=== PATIENT | female | born 1940 | race African-American/Black ===

== ENCOUNTER 2023-10-25 11:19 | Outpatient (AMB) | payer MEDICARE, MEDICAID, SELFPAY ==
--- NOTE | 2023-10-25 11:23 | HO.NEPHOV_ITS ---
HPI HPI Comments History of Present Illness Details I had the privilege of seeing Azalia in follow-up of her hypertension. She feels well. Her blood pressure has been well controlled. She does not have any nausea vomiting, orthostatics symptoms, chest pain, shortness of breath, proximal nocturnal dyspnea, orthopnea, pedal edema or urinary symptoms. She does not take any nonsteroidal anti-inflammatories. She had no medication changes. She feels well. [facility] Medical History (Updated 10/25/23 @ 13:32 by Daren Rehman MD) Urinary incontinence Palpitations Osteoporosis Neck pain LLQ pain Leg weakness Left hip pain Impaired fasting glucose Hyponatremia Hyperlipidemia Hiatal hernia Glaucoma Gastritis Fatigue Esophageal reflux Emphysema of lung Diverticulosis Chronic kidney disease, stage 3a Cervical radiculopathy Cerebral aneurysm Arthritis Anemia Hypertension Surgical History Hx of appendectomy Hx of tubal ligation H/O colonoscopy Family History Mother Breast cancer Father Hypertension Social History Alcohol intake: never Patient Tobacco Use Status: Former Tobacco user Vital Signs 10/25/23 11:24 Height 5 ft 1 in Weight 148 lb 8 oz BMI 28.1 BP 134/60 Blood Pressure Location Lt brachial Position Sitting Pulse 56 Pulse Source Pulse Oximeter Pulse Oximetry (%) 98 Oxygen Delivery Method Room Air Physical Exam Vital Signs: Last Vital Signs Pulse 56 10/25/23 11:24 BP 134/60 10/25/23 11:24 Pulse Ox 98 10/25/23 11:24 Oxygen Delivery Method Room Air 10/25/23 11:24 BMI result Body Mass Index 28.1 Const General: comfortable and no acute distress Orientation/consciousness: patient oriented x3 HEENT Head: Yes normocephalic Mouth: Normal oral and palatal mucosa present Eyes EOM: EOMs intact bilaterally Neck Neck: Yes supple Resp Auscultation: clear to auscultation bilaterally Cardio Jugular venous distension: no JVD Rate: regular rate GI Palpation (GI): Soft to palpation Auscultation: normal bowel sounds General: Yes no CVA tenderness Back/Spine/Pelvis Back: no CVA tenderness Skin General skin exam: no rashes or lesions noted Neuro General: patient oriented x3 and moves all extremities Extrem General: Yes no pedal edema Assessment & Plan Assessment & Plan (1) Hypertension: Code(s): I10 - Essential (primary) hypertension Qualifiers: Hypertension type: primary hypertension Qualified Code(s): I10 - Essential (primary) hypertension (2) CKD (chronic kidney disease) stage 3, GFR 30-59 ml/min: Code(s): N18.30 - Chronic kidney disease, stage 3 unspecified Qualifiers: Chronic kidney disease stage 3 subtype: stage 3a (GFR 45-59) Qualified Code(s): N18.31 - Chronic kidney disease, stage 3a Plan Azalia has longstanding hypertension. Her blood pressure is currently well controlled on current medication regimen. 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 She takes lisinopril and carvedilol twice a day and amlodipine in the middle of the day. Her serum creatinine was 1.1 and is pretty close to base line. She maintains good hydration, low-sodium diet and avoid nonsteroidal anti-inflammatories. Doppler of renal arteries were normal in the past. She has no history of significant proteinuria. I did not make any medication changes today. Her blood pressure is at goal. No prescription refills requested today. All questions answered. Follow-up appointment given. Orders: Orders Electrolytes Today I10 - Essential (primary) hypertension Blood Urea Nitrogen Today I10 - Essential (primary) hypertension Creatinine Today I10 - Essential (primary) hypertension Coding Level of Care Code Est Pt Level 4 (74725) Diagnoses Primary hypertension I10 Hypertension type: primary hypertension Stage 3a chronic kidney disease N18.31 Chronic kidney disease stage 3 subtype: stage 3a (GFR 45-59) Results Reviewed Nephrology Results: No Data to Display
[2023-10-25 11:24] VITALS: BP 134/60; PULSE 56; O2SAT 98; BMI 28.1
== END 2023-10-25 11:52 | disposition home or self-care (01) ==
PROVIDERS: PCP Internal Medicine; Visit Provider Internal Medicine Nephrology
DX: I10 Essential (primary) hypertension (principal); N18.31 Chronic kidney disease, stage 3a
CPT/HCPCS: 99214

== ENCOUNTER → 2023-10-25 11:19 | Outpatient (BNVA) | payer MEDICARE, SELFPAY | PROVIDERS: PCP Internal Medicine; Visit Provider Internal Medicine Nephrology | DX: I12.9 Hypertensive chronic kidney disease with stage 1 through stage 4 chronic kidney disease, or unspecified chronic kidney disease (principal); N18.31 Chronic kidney disease, stage 3a | CPT/HCPCS: 99212 ==

== ENCOUNTER 2024-02-21 08:08 | Outpatient (REF) | payer MEDICARE, MEDICAID, SELFPAY ==
[2024-02-21 18:27] LABS: Anion Gap 12 (12-20); Blood Urea Nitrogen 16 mg/dL (9-16); Calcium 9.3 mg/dL (8.4-10.2); Carbon Dioxide 27 mmol/L (22-29); Chloride 106 mmol/L (96-108); Estimated Glomerular Filt Rate 49; Potassium 4.1 mmol/L (3.3-5.1); Sodium 141 mmol/L (135-145)
[2024-02-21 18:49] LABS: Creatinine Urine 32.86 mg/dL; Total Protein Urine Random < 7 mg/dL (<12)
== END 2024-02-21 08:09 | disposition home or self-care (01) ==
LOC: HO.HKASLDS 08:08
PROVIDERS: Visit Provider Internal Medicine Nephrology
DX: I12.9 Hypertensive chronic kidney disease with stage 1 through stage 4 chronic kidney disease, or unspecified chronic kidney disease (principal); N18.31 Chronic kidney disease, stage 3a
CPT/HCPCS: 36415; 80051; 82310; 82565; 82570; 84156; 84520; 99212

== ENCOUNTER 2024-02-21 14:32 | Outpatient (AMB) | payer MEDICARE, MEDICAID, SELFPAY ==
--- NOTE | 2024-02-21 14:33 | HO.NEPHOV_ITS ---
Vital Signs 02/21/24 14:35 Height 5 ft 1 in Weight 148 lb 2 oz BMI 28.0 BP 112/60 Blood Pressure Location Lt brachial Position Sitting Pulse 59 Pulse Source Pulse Oximeter Pulse Oximetry (%) 96 Oxygen Delivery Method Room Air Intake Visit Reasons: 4 mon follow up/ LVM Rn Chemical Dependency Required: No Accompanied by: Self / Same As Patient Allergies lactose Allergy (Verified 02/21/24 14:36) Unknown onion Allergy (Verified 02/21/24 14:36) Unknown Penicillins Allergy (Verified 02/21/24 14:36) Unknown prednisone Allergy (Verified 02/21/24 14:36) Hives HPI Comments Details: I had the privilege of seeing Azalia in follow-up of her hypertension. She feels well. Her blood pressure has been well controlled. She does not have any nausea vomiting, orthostatics symptoms, chest pain, shortness of breath, proximal nocturnal dyspnea, orthopnea, pedal edema or urinary symptoms. She does not take any nonsteroidal anti-inflammatories. She had no medication changes. She feels well. [facility] Medical History (Updated 10/25/23 @ 13:32 by Daren Remhan MD) Urinary incontinence Palpitations Osteoporosis Neck pain LLQ pain Leg weakness Left hip pain Impaired fasting glucose Hyponatremia Hyperlipidemia Hiatal hernia Glaucoma Gastritis Fatigue Esophageal reflux Emphysema of lung Diverticulosis Chronic kidney disease, stage 3a Cervical radiculopathy Cerebral aneurysm Arthritis Anemia Hypertension Surgical History Hx of appendectomy Hx of tubal ligation H/O colonoscopy Family History Mother Breast cancer Father Hypertension Social History Alcohol intake: never Patient Tobacco Use Status: Former Tobacco user Review of Systems Const All systems reviewed & are unremarkable except as noted in HPI and below Physical Exam Vital Signs: Last Vital Signs Pulse 59 02/21/24 14:35 BP 112/60 02/21/24 14:35 Pulse Ox 96 02/21/24 14:35 Oxygen Delivery Method Room Air 02/21/24 14:35 BMI result Body Mass Index 28.0 Const General: comfortable and no acute distress Orientation/consciousness: patient oriented x3 HEENT Head: Yes normocephalic Mouth: Normal oral and palatal mucosa present Eyes EOM: EOMs intact bilaterally Neck Neck: Yes supple Resp Auscultation: clear to auscultation bilaterally Cardio Jugular venous distension: no JVD Rate: regular rate GI Palpation (GI): Soft to palpation Auscultation: normal bowel sounds General: Yes no CVA tenderness Back/Spine/Pelvis Back: no CVA tenderness Skin General skin exam: no rashes or lesions noted Neuro General: patient oriented x3 and moves all extremities Extrem General: Yes no pedal edema Results Reviewed Nephrology Results: 2 No Data to Display Assessment & Plan Assessment & Plan (1) CKD (chronic kidney disease) stage 3, GFR 30-59 ml/min: Code(s): N18.30 - Chronic kidney disease, stage 3 unspecified Category: Medical Qualifiers: Chronic kidney disease stage 3 subtype: stage 3a (GFR 45-59) Qualified Code(s): N18.31 - Chronic kidney disease, stage 3a (2) Hypertension: Code(s): I10 - Essential (primary) hypertension Category: Medical Qualifiers: Hypertension type: primary hypertension Qualified Code(s): I10 - Essential (primary) hypertension Plan Azalia has longstanding hypertension. Her blood pressure is currently well controlled on current medication regimen. 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 She takes lisinopril and carvedilol twice a day and amlodipine in the middle of the day. Her serum creatinine is pretty close to base line. She maintains good hydration, low- sodium diet and avoid nonsteroidal anti-inflammatories. Doppler of renal arteries were normal in the past. She has no history of significant proteinuria. I did not make any medication changes today. Her blood pressure is at goal. No prescription refills requested today. All questions answered. Follow-up appointment given. Orders: Orders Blood Urea Nitrogen 4 Months I10 - Essential (primary) hypertension, N18.31 - Chronic kidney disease, stage 3a Electrolytes 4 Months I10 - Essential (primary) hypertension, N18.31 - Chronic kidney disease, stage 3a Creatinine 4 Months I10 - Essential (primary) hypertension, N18.31 - Chronic kidney disease, stage 3a Coding Level of Care Code Est Pt Level 4 (29830) Diagnoses Stage 3a chronic kidney disease N18.31 Chronic kidney disease stage 3 subtype: stage 3a (GFR 45-59) Primary hypertension I10 Hypertension type: primary hypertension
[2024-02-21 14:35] VITALS: BP 112/60; PULSE 59; O2SAT 96; BMI 28.0
== END 2024-02-21 15:07 | disposition home or self-care (01) ==
LOC: HO.HKAS 14:32
PROVIDERS: PCP Internal Medicine; Visit Provider Internal Medicine Nephrology
DX: N18.31 Chronic kidney disease, stage 3a (principal); I10 Essential (primary) hypertension
CPT/HCPCS: 99214

== ENCOUNTER 2024-06-12 13:27 | Outpatient (AMB) | payer MEDICARE, MEDICAID, SELFPAY ==
--- NOTE | 2024-06-12 13:31 | HO.NEPHOV_ITS ---
Vital Signs 06/12/24 13:32 Height 5 ft 1 in Weight 148 lb 6 oz BMI 28.0 BP 130/60 Blood Pressure Location Lt brachial Position Sitting Pulse 63 Pulse Source Pulse Oximeter Pulse Oximetry (%) 97 Oxygen Delivery Method Room Air Intake Visit Reasons: 4 month f/u/ Conf Drop Wire Aliner Required: No Accompanied by: Self / Same As Patient Allergies lactose Allergy (Verified 06/12/24 13:34) Unknown onion Allergy (Verified 06/12/24 13:34) Unknown Penicillins Allergy (Verified 06/12/24 13:34) Unknown prednisone Allergy (Verified 06/12/24 13:34) Hives HPI Comments Details: Azalia was seen in follow-up of her hypertension. She feels well. Her blood pressure has been well controlled. She does not have any nausea vomiting, orthostatics symptoms, chest pain, shortness of breath, proximal nocturnal dyspnea, orthopnea, pedal edema or urinary symptoms. She does not take any no nsteroidal anti-inflammatories. She had no medication changes. She feels well. [facility] Medical History (Updated 10/25/23 @ 13:32 by Daren Rehman MD) Urinary incontinence Palpitations Osteoporosis Neck pain LLQ pain Leg weakness Left hip pain Impaired fasting glucose Hyponatremia Hyperlipidemia Hiatal hernia Glaucoma Gastritis Fatigue Esophageal reflux Emphysema of lung Diverticulosis Chronic kidney disease, stage 3a Cervical radiculopathy Cerebral aneurysm Arthritis Anemia Hypertension Surgical History Hx of appendectomy Hx of tubal ligation H/O colonoscopy Family History Mother Breast cancer Father Hypertension Social History Alcohol intake: never Patient Tobacco Use Status: Former Tobacco user Review of Systems Const All systems reviewed & are unremarkable except as noted in HPI and below Physical Exam Vital Signs: Last Vital Signs Pulse 63 06/12/24 13:32 BP 150/62 H 06/12/24 13:32 Pulse Ox 97 06/12/24 13:32 Oxygen Delivery Method Room Air 06/12/24 13:32 BMI result Body Mass Index 28.0 Const General: comfortable and no acute distress Orientation/consciousness: patient oriented x3 HEENT Head: Yes normocephalic Mouth: Normal oral and palatal mucosa present Eyes EOM: EOMs intact bilaterally Neck Neck: Yes supple Resp Auscultation: clear to auscultation bilaterally Cardio Jugular venous distension: no JVD Rate: regular rate GI Palpation (GI): Soft to palpation Auscultation: normal bowel sounds General: Yes no CVA tenderness Back/Spine/Pelvis Back: no CVA tenderness Skin General skin exam: no rashes or lesions noted Neuro General: patient oriented x3 and moves all extremities Extrem General: Yes no pedal edema Results Reviewed Nephrology Results: Sodium 141 mmol/L (135-145) 02/21/24 Potassium 4.1 mmol/L (3.3-5.1) 02/21/24 Chloride 106 mmol/L (96-108) 02/21/24 Carbon Dioxide 27 mmol/L (22-29) 02/21/24 BUN 16 mg/dL (9-16) 02/21/24 Creatinine 1.06 mg/dL (0.5-1.4) 02/21/24 Calcium 9.3 mg/dL (8.4-10.2) 02/21/24 Urine Creatinine 32.86 mg/dL 02/21/24 Protein/Creatinin Ratio TNP 02/21/24 Assessment & Plan Assessment & Plan (1) CKD (chronic kidney disease) stage 3, GFR 30-59 ml/min: Code(s): N18.30 - Chronic kidney disease, stage 3 unspecified Category: Medical Qualifiers: Chronic kidney disease stage 3 subtype: stage 3a (GFR 45-59) Qualified Code(s): N18.31 - Chronic kidney disease, stage 3a (2) Hypertension: Code(s): I10 - Essential (primary) hypertension Category: Medical Qualifiers: Hypertension type: primary hypertension Qualified Code(s): I10 - Essential (primary) hypertension Plan Azalia has longstanding hypertension. Her blood pressure is currently well controlled on current medication regimen. 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 She takes lisinopril and carvedilol twice a day and amlodipine in the middle of the day. Her serum creatinine is pretty close to base line. She maintains good hydration, low- sodium diet and avoid nonsteroidal anti-inflammatories. Doppler of renal arteries were normal in the past. She has no history of significant proteinuria. I did not make any medication changes today. Her blood pressure is at goal. No prescription refills requested today. All questions answered. Follow-up appointment given Orders: Orders Blood Urea Nitrogen 6 Months I10 - Essential (primary) hypertension, N18.31 - Chronic kidney disease, stage 3a Electrolytes 6 Months I10 - Essential (primary) hypertension, N18.31 - Chronic kidney disease, stage 3a Creatinine 6 Months I10 - Essential (primary) hypertension, N18.31 - Chronic kidney disease, stage 3a Medications: Changed From carvedilol 25 mg PO BID To carvedilol 25 mg PO BID 90 days 180 tabs 4RF Coding Level of Care Code Est Pt Level 4 (13910) Diagnoses Stage 3a chronic kidney disease N18.31 Chronic kidney disease stage 3 subtype: stage 3a (GFR 45-59) Primary hypertension I10 Hypertension type: primary hypertension
[2024-06-12 13:32] VITALS: BP 130/60; PULSE 63; O2SAT 97; BMI 28.0
== END 2024-06-12 13:50 | disposition home or self-care (01) ==
PROVIDERS: PCP Internal Medicine; Visit Provider Internal Medicine Nephrology
DX: N18.31 Chronic kidney disease, stage 3a (principal); I10 Essential (primary) hypertension
CPT/HCPCS: 99214

== ENCOUNTER → 2024-06-12 13:27 | Outpatient (BNVA) | payer MEDICARE, MEDICAID, SELFPAY | PROVIDERS: PCP Internal Medicine; Visit Provider Internal Medicine Nephrology | DX: I12.9 Hypertensive chronic kidney disease with stage 1 through stage 4 chronic kidney disease, or unspecified chronic kidney disease (principal); N18.31 Chronic kidney disease, stage 3a | CPT/HCPCS: 99212 ==

== ENCOUNTER 2024-12-13 08:42 | Outpatient (REF) | payer MEDICARE, MEDICAID, SELFPAY ==
--- OUTSIDE RECORDS SUMMARY | 2024-12-13 09:18 | XMS_ITS | Clinical Summary ---
Author Organization [facility] Address [address] [place] [address] Phone Care Team Providers Care Automotive Parts Specialist Name Role Phone Violeta Busby MD Primary Care Provider [phone]- [phone] Allergies Active Allergy Reactions Criticality Noted Date Comments Lactose 10/15/2021 Lactose Intolerance (Gi) Other (see comments) 0 04/06/2021 Onion Other (see comments) 04/06/2021 Penicillins Other (see comments) 04/06/2021 Prednisone Hives 10/15/2021 Medications amLODIPine (NORVASC) 10 MG tablet Take 1 tablet by mouth 1 (one) time each day Active aspirin (ST TAD) 81 MG EC tablet Take 1 tablet by mouth 1 (one) time each day Active bimatoprost (Lumigan) 0.01 % ophthalmic drops Active calcium carbonate (OS-CITLALI) 600 MG tablet Take 1 tablet by mouth 1 (one) time each day Active carvedilol (COREG) 25 MG tablet Take 1 tablet by mouth 2 (two) times a day Active lisinopril 20 MG tablet Take 1 tablet by mouth 2 (two) times a day Active omeprazole (PriLOSEC) [address] capsule Take 1 capsule by mouth 2 (two) times a day 09/09/2014 Active sucralfate (CARAFATE) 1 g tablet Take 1 tablet by mouth 1 (one) time each day Active FeroSul 325 (65 Fe) MG tablet Take 1 tablet by mouth 3 times a day 11/08/2022 Active Active Problems Problem Noted Date Diagnosed Date Osteoporosis 11/15/2022 Palpitations 11/12/2022 Stage 3a chronic kidney disease 05/13/2022 Urinary incontinence 10/15/2021 Fatigue 09/11/2021 Anemia 04/06/2021 Benign essential hypertension 04/06/2021 Hypertension 04/06/2021 Resolved Problems Problem Noted Date Diagnosed Date Resolved Date Cervical radiculopathy 10/15/202110/15 Diverticular disease 10/15/2021 022 Emphysema 10/15/2021 10/15/2021 Arthritis 10/15/2021 10/15/2021 Gastroesophageal reflux disease 10/15/2021 10/15/2021 Gastritis 10/15/2021 10/15/2021 Glaucoma 10/15/2021 10/15/2021 Hiatal hernia 10/15/2021 10/15/2021 Hip pain 10/15/2021 10/15/2021 Hyperlipidemia 10/15/2021 10/15/2021 Impaired fasting glycemia 10/15/2021 Neck pain 10/15/2021 10/15/2021 Paresis of lower extremity 10/15/2021 0 10/15/2021 Immunizations Immunization Administration Dates Next Due Influenza, Unspecified 06/28/2022 Pfizer SARS-COV-2 08/12/2021,11/04/2020,10/07/19 21 Pneumococcal Conjugate 13-Valent 07/03/2015 Pneumococcal Polysaccharide 10/25/2017 SARS-CoV-2, Unspecified 05/26/2022 Td, Unspecified 03/26/2016 Family History Medical History Relation Comments Diabetes Child Hypertension Father Cancer Mother Hypertension Sibling 1 Stroke Sibling 2 Cancer Sibling 3 Relation Status Comments Child Father Mother Sibling 1 Sibling 2 Sibling 3 Social History Tobacco Use Types Packs/Day Years Used Date Smoking Tobacco: Never Smokeless Tobacco: Never Tobacco Cessation:Counseling Given: Not Answered Alcohol Use Standard Drinks/Week Comments No 0 (1 standard drink = 0.6 oz pur e alcohol) Comments Unknown Sex and Gender Information Value Date Recorded Sex Assigned at Not on file Legal Sex Female 5:09 PM EST Gender Identity Not on file Sexual Orientation Not on file Last Filed Vital Signs Vital Sign Reading Time Taken Comments Blood Pressure 118/80 05/23/2023 2:18 PM EDT Pulse 57 05/23/2023 2:18 PM EDT Temperature - - Respiratory Rate - - Oxygen Saturation 98% 05/23/2023 2:18 PM EDT Inhaled Oxygen Concentration - - Weight 68.8 kg (151 lb 9.6 oz) 05/23/2023 2:18 P M EDT Height 154.9 cm (5' 1 ) 10/02/2020 12:01 PM EST Body Mass Index 28.64 10/02/2020 12:01 PM EST Plan of Treatment Health Maintenance Due Date Last Done Comments Influenza Vaccine (Season Ended) 2025 06/28/2022 Pneumococcal Vaccine: 50+ Years Completed 10/25/2017, 07/03/2015 Pneumococcal Vaccine: Peds (0 to 5 Years) and At-Risk Patients (6 to 49 Years) Discontinued 10/25/2017, 07/03/2015 Hepatitis B Vaccine Aged Out No longe r eligible based on patient's age to complete this topic Insurance Medicaid [place] [facility] Medicare UHC Medicare Medicaid [place] Care Teams Automotive Parts Specialist Relationship Specialty Start Date End Date Violeta Busby MD [facility] [place], [place] PCP - General 09/08/20
--- OUTSIDE RECORDS SUMMARY | 2024-12-13 09:18 | XMS_ITS | Clinical Summary ---
Author Organization [address] [place] [address] [place] [id number] Phone Care Team Providers Care Extruder Operator Name Role Phone Violeta Busby MD Primary Care Provider [phone]- [phone] Allergies Active Allergy Reactions Criticality Noted Date Comments Penicillins Rash 08/06/2024 Medications sucralfate (CARAFATE) 1 gram tablet Take by mouth 4 (four) times a day. Active omeprazole (PriLOSEC) [address] capsule Take 20 mg by mouth 1 (one) time each day. Do not crush or chew. Active psyllium (METAMUCIL) 3.4 gram packet Take 1 packet by mouth 1 (one) time each day. Active lisinopriL (PRINIVIL,ZESTRI L) 20 mg tablet Take 1 tablet (20 mg total) by mouth 1 (one) time each day. Active carvediloL (COREG) 25 mg tablet Take 1 tablet (25 mg total) by mouth 2 (two) times a day with meals. Active aspirin 81 mg EC tablet Take 1 tablet (81 mg total) by mouth 1 (one) time each day. Active amLODIPine (NORVASC) 10 mg tablet Take 1 tablet (10 mg total) by mouth 1 (one) time each day. Active Social History Tobacco Use Types Packs/Day Years Used Date Smoking Tobacco: Never Assessed Comments Unknown Sex and Gender Information Value Date Recorded Sex Assigned at Not on file Legal Sex Female 2:11 PM EST Gender Identity Not on file Sexual Orientation Not on file Last Filed Vital Signs Vital Sign Reading Time Taken Comments Blood Pressure 164/68 08/06/2024 2:55 PM EST Pulse 64 08/06/2024 2:55 PM EST Temperature 36.3 ??C (97.3 ??F) 08/06/2024 2:51 PM ES T Respiratory Rate - - Oxygen Saturation 98% 08/06/2024 2:55 PM EST Inhaled Oxygen Concentration - - Weight - - Height - - Body Mass Index - - Plan of Treatment Health Maintenance Due Date Last Done Comments Zoster Vaccines (1 of 2) 1988 RSV Immunization Adult Patients (1 - 1-dose 75+ series) 2013 COVID-19 Vaccine ( season) 2024 05/31/2023, 05/26/2022, 08/12/2021, Additional history exists Cholesterol Screening (Lipid Panel) 08/07/2024 Depression Screening 08/07/2024 Falls Risk Assessment 08/07/2024 Hypertension/CHF/CAD Annual BMP Blood Test 08/07/2024 Medicare Annual Wellness Visit 08/07/2024 Osteoporosis Screening (Bone Density Screening) 08/07/2024 Social Influencers of Health Screening 08/07/2024 DTaP,Tdap,and Td Vaccines (2 - Td or Tdap) 03/26/2026 03/26/2016 Pneumococcal Vaccine: 50+ Years Completed 01/31/2023, 10/25/2017, 07/03/2015 Influenza Vaccine Completed 06/04/2024, , 06/28/2022, Additional history exists HIB Vaccines Aged Out No longer eligi ble based on patient's age to complete this topic HPV Vaccines Aged Out No longer eligi ble based on patient's age to complete this topic Hepatitis A Vaccines Aged Out No long er eligible based on patient's age to complete this topic Hepatitis B Vaccines Aged Out No long er eligible based on patient's age to complete this topic IPV Vaccines Aged Out No longer eligi ble based on patient's age to complete this topic MMR Vaccines Aged Out No longer eligi ble based on patient's age to complete this topic Meningococcal ACWY Vaccine Aged Out N o longer eligible based on patient's age to complete this topic Meningococcal B Vaccine Aged Out No l onger eligible based on patient's age to complete this topic RSV Immunization Patients Under 20 months Aged Out No longer eligible based on patient's age to complete this topic Varicella Vaccines Aged Out No longer eligible based on patient's age to complete this topic Insurance [employer] MEDICARE MEDICAID - [place] Care Teams Extruder Operator Relationship Specialty Start Date End Date Violeta Busby MD [address] [place] [address] PCP - General Internal Medicine 08/06/24
--- OUTSIDE RECORDS SUMMARY | 2024-12-13 09:19 | XMS_ITS | Data Portability ---
Author Organization [place] - [facility], Allergy Address [address] [address] Care Team Providers Care Roustabout Crew Pusher Name Role Phone NANNETTE TOLEDO Primary Care Provider [phone] Assessment Encounter Date Assessment Date Assessment LastModified by Organization Details LastModified Time 10/09/2024 10/09/2024 Patient comes in for evaluation of tinnitus. Both external auditory canals, tympanic membranes and middle ear spaces are normal. 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 No asymmetry. Today we discussed the pathophysiology of tinnitus and the absence of consistently successful pharmacologic treatments for tinnitus. We discussed masking strategies to decrease awareness of the tinnitus, including using a white noise machine, music, or television.? ? ?We discussed how exposure to loud noise can worsen tinnitus so I recommended hearing protection. We also discussed other ways to potentially help reduce awareness of tinnitus including avoidance of caffeine, salty meals and NSAIDs. Not available 10/09/2024 11:24:40 Plan of Treatment Reminders Order Date Submit Date Provider Last Modified By Organization Details Last Modified Time Details Appointments None record ed. Lab None record ed. Referral None record ed. Procedures None record ed. Surgeries None record ed. Imaging None record ed. Medication Orders None record ed. Patient TargetsNo targets recorded. Patient InstructionsNo instructions recorded. Reason for Referral None Reported. Results Created Date Observation Date Name Description Value Unit Range Abnormal Flag Note LastModifiedBy Organization Detail LastModifiedTime 10/09/19 25 audio gram No observ ation record ed. BARCODE Not Available 2024 14:46:18 Result Notes None recorded. Problems Name Problem SNOMED Code Status Onset Date Resolution Date Notes Provider Name and Address Organization Details Recorded Time Bilateral tinnitus 3591347520445 Active 2024 MARCIAL JESUS, AUD 100 [facility],[address], [place], [address], [facility] - [facility] 5 10:10:31 Sensorineur al hearing loss of bilateral ears 763094388 Active 2024 MARCIAL JESUS, AUD 100 [facility], [address], [place], [address], [facility] [place] 5 10:10:44 Problem Notes None recorded. Procedures Surgical History Date Name Laterality Status Provider Name and Address Organization Details Recorded Time 10/09/2024 Comp Audio with Tymps (15946 & 49610) completed MARCIAL JESUS, AUD 100 [facility], [place], [address], [facility] [place] 10/09/2024 10:10:57 Imaging Results Imaging Date Name Status LastModified by Organiz ation Details LastModified Time 10/09/2024 audiogram completed BARCODE Information no t available 10/09/2024 14:46:18 Procedure Notes None recorded. Medical Equipment None Reported. Allergies Allergen ID Allergen Name Allergen Category Reaction Reaction Severity Criticality Documentation Date Start Date Code Code System Note Provider Name and Address Organization Details Recorded Time 649310 onion extract food,medi cation Not available Not available Not available 10/09/2024 61092 [address] [facility] 11:09:48 434180 Product containin g penicilli n (product) medicatio n Not available Not available Not available 10/09/2024 [address] [facility] 11:09:56 Medications Name Sig Start Date Stop Date Status Note LastModified by Organization Details LastModified Time carvedilol 25 mg tablet TAKE 1 TABLET BY MOUTH TWICE DAILY active Not Available Not Available No t Available sucralfate 1 gram tablet TAKE 1 TABLET BY MOUTH DAILY NEEDED FOR ABDOMINAL DISCOMFORT - CAN DISSOLVE IN WATER active Not Available Not Available No t Available lisinopril 20 mg tablet TAKE 1 TABLET BY MOUTH DAILY AT BEDTIME active Not Available Not Available N ot Available aspirin 81 mg tablet,day yed release TAKE 1 TABLET BY MOUTH DAILY active Not Available Not Available Not Available Deep Sea Nasal 0.65 % spray aerosol active Not Available Not Available Not Available amlodipine 10 mg tablet TAKE 1 TABLET BY MOUTH DAILY AT SUPPER TAKE BETWEEN 2 PM-4 PM active Not Available Not Available No t Available omeprazole 20 mg capsule,del ayed release TAKE 1 CAPSULE BY MOUTH DAILY active Not Available Not Available Not Available Lumigan 0.01 % eye drops INSTILL 1 DROP INTO BOTH EYES AT BEDTIME active Not Available Not Available No t Available Stimulant Laxative Plus 8.6 mg-50 mg tablet TAKE 1 TABLET BY MOUTH 1 TIME EACH DAY active Not Available Not Available No t Available QuickVue At-Home COVID-19 Test kit FOLLOW INSTRUCTIONS ON BOX active Not Available Not Available No t Available Vitals Date Recorded Body height Body mass index (BMI) Body weight Provider Name and Address Organization Details Last Updated DateTime 10/09/2024 154.94 cm 26.5 kg/m2 32630.93 g Gertrude Jaimes [place] - [facility] 10/09/2024 11:09:29 Social History Question Answer Notes LastModified by Pufferfish ion Details LastModified Time Tobacco Smoking Status Never Smoker Gertrude dominguez [place] - [facility] 10/09/2024 11:11:47 What Is Your Level Of Alcohol Consumption? None [email or web address] Information not available 10/09/2024 Sex: Unknown Functional Status None recorded. Mental Status None recorded. Family History Nothing Reported. Medical History Condition Response Anemia Y Hypertension Y Kidney Disease Y Gynecological HistoryNo gynecological history recorded. Obstetrics History GPAL:G 0 P 0 0 0 0 Past Encounters Encounter ID Performer Location Encounter Start Date Encounter Closed Date Diagnosis/Indication Diagnosis SNOMED-CT Code Diagnosis ICD10 Code Diagnosis Note [id number] SAMANTHA STEWART MD [facility] [address] [address] 10/09/2024 09:52:38 10/09/2024 11:25:29 Bilateral tinnitus 5490195172 102 H93.13 Sensorineu ral hearing loss of bilateral ears 608054344 H90.3 Right Ear:Normal hearing through 4K Hz sloping to a moderately -severe SNHL with excellent speech discrimina tion.Type A tympanogra m.Left Ear:Normal hearing through 4K Hz sloping to a moderately -severe SNHL with excellent speech discrimina tion.Type A tympanogra m. Health Concerns Section Related Observation LastModified by Organization Detai ls LastModified Time None Recorded Concern Status LastModified by Organization Details LastModified Time None Recorded Advance Directives Directive None Recorded Payers Encounter Date Sequence Insurance Name Policy Number Policy Garza Covered Member ID Garza Member ID Guarantor Name 10/09/2024 1 [place]: [facility] Azalia Blanks [id number] Azalia Blanks 10/09/[address] [facility] (MEDICARE REPLACEMENT/A DVANTAGE - PPO) [id number] Azalia Blanks [id number] Azalia Blanks Notes Date Note Type Note Provider Name and Address Organization Details Recorded Time 10/09/2024 text/html Patient referred for evaluation of tinnitus. Patient has history of stage III chronic kidney disease and impaired fasting glucose. She has history of cerebral aneurysm and history of cervical radiculopathy. She reported to her primary care physician persistent tinnitus. She had CT of the head without contrast in August 2023 which was negative. She had MRI brain without contrast in August 2023 which was also negative. IAC protocol was not performed. An aneurysm was detected but follow-up with neurosurgery required no treatment.Patient reports constant tinnitus bilaterally, right greater than left described as static . She notes that it is there most of the day. When her attention is directed elsewhere she does not notice it as much, but it only seems to be present. SAMANTHA STEWART MD [address] [place] [address], [place], [address], [place] - [facility] 10/09/2024 11:24:51 OBGyn Episode No OBEpisode recorded.
[2024-12-13 17:59] LABS: Anion Gap 11 (12-20); Blood Urea Nitrogen 12 mg/dL (9-16); Carbon Dioxide 28 mmol/L (22-29); Chloride 104 mmol/L (96-108); Estimated Glomerular Filt Rate 53; Sodium 139 mmol/L (135-145)
== END 2024-12-13 08:43 | disposition home or self-care (01) ==
LOC: HO.HKASLDS 08:42
PROVIDERS: Visit Provider Internal Medicine Nephrology
DX: N18.31 Chronic kidney disease, stage 3a (principal); I10 Essential (primary) hypertension
CPT/HCPCS: 36415; 80051; 82565; 84520

== ENCOUNTER 2024-12-18 10:54 | Outpatient (AMB) | payer MEDICARE, MEDICAID, SELFPAY ==
--- NOTE | 2024-12-18 11:35 | HO.NEPHOV_ITS ---
Vital Signs 12/18/24 11:36 Height 5 ft 1 in Weight 139 lb 8 oz BMI 26.4 BP 126/50 L Blood Pressure Location Lt brachial Position Sitting Intake Visit Reasons: 6 mon follow up-[facility] Skiver Counter Required: No Accompanied by: Self / Same As Patient Allergies lactose Allergy (Verified 12/18/24 11:36) Unknown onion Allergy (Verified 12/18/24 11:36) Unknown Penicillins Allergy (Verified 12/18/24 11:36) Unknown prednisone Allergy (Verified 12/18/24 11:36) Hives HPI Comments Details: Azalia was seen in follow-up of her hypertension. She feels well. Her blood pressure has been well controlled. She does not have any nausea vomiting, orthostatics symptoms, chest pain, shortness of breath, proximal nocturnal dyspnea, orthopnea, pedal edema or urinary symptoms. She does not take any n onsteroidal anti-inflammatories. She had no medication changes. She feels well. [facility] Medical History (Updated 10/25/23 @ 13:32 by Daren Rehman MD) Urinary incontinence Palpitations Osteoporosis Neck pain LLQ pain Leg weakness Left hip pain Impaired fasting glucose Hyponatremia Hyperlipidemia Hiatal hernia Glaucoma Gastritis Fatigue Esophageal reflux Emphysema of lung Diverticulosis Chronic kidney disease, stage 3a Cervical radiculopathy Cerebral aneurysm Arthritis Anemia Hypertension Surgical History Hx of appendectomy Hx of tubal ligation H/O colonoscopy Family History Mother Breast cancer Father Hypertension Social History Alcohol intake: never Patient Tobacco Use Status: Former Tobacco user Review of Systems Const All systems reviewed & are unremarkable except as noted in HPI and below Physical Exam Vital Signs: Last Vital Signs BP 126/50 L 12/18/24 11:36 BMI result Body Mass Index 26.4 Const General: comfortable and no acute distress Orientation/consciousness: patient oriented x3 HEENT Head: Yes normocephalic Mouth: Normal oral and palatal mucosa present Eyes EOM: EOMs intact bilaterally Neck Neck: Yes supple Resp Auscultation: clear to auscultation bilaterally Cardio Jugular venous distension: no JVD Rate: regular rate GI Palpation (GI): Soft to palpation Auscultation: normal bowel sounds General: Yes no CVA tenderness Back/Spine/Pelvis Back: no CVA tenderness Skin General skin exam: no rashes or lesions noted Neuro General: patient oriented x3 and moves all extremities Extrem General: Yes no pedal edema Results Reviewed Nephrology Results: Sodium 139 mmol/L (135-145) 12/13/24 Potassium 4.0 mmol/L (3.3-5.1) 12/13/24 Chloride 104 mmol/L (96-108) 12/13/24 Carbon Dioxide 28 mmol/L (22-29) 12/13/24 BUN 12 mg/dL (9-16) 12/13/24 Creatinine 1.00 mg/dL (0.5-1.4) 12/13/24 Calcium 9.3 mg/dL (8.4-10.2) 02/21/24 Urine Creatinine 32.86 mg/dL 02/21/24 Protein/Creatinin Ratio TNP 02/21/24 Assessment & Plan Assessment & Plan (1) CKD (chronic kidney disease) stage 3, GFR 30-59 ml/min: Code(s): N18.30 - Chronic kidney disease, stage 3 unspecified Category: Medical Qualifiers: Chronic kidney disease stage 3 subtype: stage 3a (GFR 45-59) Qualified Code(s): N18.31 - Chronic kidney disease, stage 3a (2) Hypertension: Code(s): I10 - Essential (primary) hypertension Category: Medical Qualifiers: Hypertension type: primary hypertension Qualified Code(s): I10 - Essential (primary) hypertension Plan Azalia has longstanding hypertension. Her blood pressure is currently well controlled on current medication regimen. 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 She takes lisinopril and carvedilol twice a day and amlodipine in the middle of the day. Her serum creatinine is pretty close to base line. She maintains good hydration, low- sodium diet and avoid nonsteroidal anti-inflammatories. Doppler of renal arteries were normal in the past. She has no history of significant proteinuria. I did not make any medication changes today. Her blood pressure is at goal. No prescription refills requested today. All questions answered. Follow-up appointment given Orders: Orders Complete Blood Count Auto Diff 6 Months I10 - Essential (primary) hypertension, N18.31 - Chronic kidney disease, stage 3a Creatinine 6 Months I10 - Essential (primary) hypertension, N18.31 - Chronic kidney disease, stage 3a Electrolytes 6 Months I10 - Essential (primary) hypertension, N18.31 - Chronic kidney disease, stage 3a Blood Urea Nitrogen 6 Months I10 - Essential (primary) hypertension, N18.31 - Chronic kidney disease, stage 3a Calcium 6 Months I10 - Essential (primary) hypertension, N18.31 - Chronic kidney disease, stage 3a Coding Level of Care Code Est Pt Level 4 (90726) Diagnoses Stage 3a chronic kidney disease N18.31 Chronic kidney disease stage 3 subtype: stage 3a (GFR 45-59) Primary hypertension I10 Hypertension type: primary hypertension
[2024-12-18 11:36] VITALS: BP 126/50; BMI 26.4
--- OUTSIDE RECORDS SUMMARY | 2024-12-18 12:58 | XMS_ITS | Clinical Summary ---
Author Organization [address] [place] [address] [place] [address] Phone Care Team Providers Care Pmp Name Role Phone Violeta Busby MD Primary Care Provider [phone]- [phone] Allergies Active Allergy Reactions Criticality Noted Date [...] HEALTHCARE MEDICARE [place]ICAID - [place] Care Teams Pmp Relationship Specialty Start Date End Date Violeta Busby MD [address] [place] [address] PCP - General Internal Medicine 08/06/24
--- OUTSIDE RECORDS SUMMARY | 2024-12-18 12:58 | XMS_ITS | Clinical Summary ---
Author Organization [facility] Address [address] [place] [address] Phone Care Team Providers Care Health And Wellness Coach Name Role Phone Violeta Busby MD Primary Care Provider [phone]- [phone] Allergies Active Allergy Reactions Criticality Noted Date [...] to complete this topic Insurance [place] [facility] [place] [address] Medicaid [place] Care Teams Health And Wellness Coach Relationship Specialty Start Date End Date Violeta Busby MD [facility] [place], [place] PCP - General 09/08/20
--- OUTSIDE RECORDS SUMMARY | 2024-12-18 12:58 | XMS_ITS | Data Portability ---
Author Organization [place] - [facility], Allergy Address [address] [address] Care Team Providers Care Strategic Sourcing Specialist Name Role Phone NANNETTE TOLEDO Primary Care Provider Assessment Encounter Date Assessment Date Assessment LastModified [...] avoidance of caffeine, salty meals and NSAIDs. [email or web address] Not available 10/09/2024 11:24:40 Plan of Treatment [...] Address Organization Details Recorded Time Bilateral tinnitus 9299189942285 Active 2024 MARCIAL JESUS, AUD 100 [facility],[address], [place], [address], [facility] - [facility] 5 10:10:31 Sensorineur al hearing loss of bilateral ears 118795619 Active 2024 MARCIAL JESUS, AUD 100 [facility], [address], [place], [address], [facility] [place] 5 10:10:44 Problem Notes None recorded. Procedures Surgical History Date Name Laterality Status Provider Name and Address Organization Details Recorded Time 10/09/2024 Comp Audio with Tymps (37886 & 93767) completed MARCIAL JESUS, AUD 100 [facility], [place], [address], [facility] [place] 10/09/2024 10:10:57 Imaging Results Imaging Date Name Status LastModified by Organiz ation Details LastModified Time 10/09/2024 audiogram completed BARCODE Information no t available 10/09/2024 14:46:18 Procedure Notes None recorded. Medical Equipment None Reported. Allergies Allergen ID Allergen Name Allergen Category Reaction Reaction Severity Criticality Documentation Date Start Date Code Code System Note Provider Name and Address Organization Details Recorded Time 860178 onion extract food,medi cation Not available Not available Not available 10/09/2024 19295 69 RxNorm Gertrude dominguez [facility] 11:09:48 178270 Product containin g penicilli n (product) medicatio n Not available Not available Not available 10/09/2024 17913 8001 SNOMED Gertrude dominguez [facility] 11:09:56 Medications Name Sig Start Date [...] Updated DateTime 10/09/2024 154.94 cm 26.5 kg/m2 88879.93 g Gertrude Jaimes [place] - [facility] 10/09/2024 11:09:29 Social History Question Answer Notes LastModified by AdexLink ion Details LastModified Time Tobacco Smoking Status Never Smoker Gertrude dominguez [place] - [facility] 10/09/2024 11:11:47 What Is Your Level Of Alcohol Consumption? None [email or web address] Information not available 10/09/2024 Sex: Unknown Functional [...] SNOMED-CT Code Diagnosis ICD10 Code Diagnosis Note [id number] SAMANTHA STEWART MD [facility] [address] [address] 10/09/2024 09:52:38 10/09/2024 11:25:29 Bilateral tinnitus 0071732763 102 H93.13 Sensorineu ral hearing loss of bilateral ears 084287354 H90.3 Right Ear:Normal hearing through 4K Hz [...] Garza Member ID Guarantor Name 10/09/2024 1 [facility] Azalia Blanks [id number] Azalia Blanks 10/09/2024 2 [facility] (MEDICARE REPLACEMENT/A DVANTAGE - PPO) [id number] Azalia Blanks [id number] Azalia Blanks Notes Date Note Type Note [...] seems to be present. SAMANTHA STEWART MD [address] [place] [address], [place], [address], [place] - [facility] 10/09/2024 11:24:51 OBGyn Episode No OBEpisode recorded.
== END 2024-12-18 11:50 | disposition home or self-care (01) ==
LOC: HO.HKAS 10:55
PROVIDERS: PCP Internal Medicine; Visit Provider Internal Medicine Nephrology
DX: N18.31 Chronic kidney disease, stage 3a (principal); I10 Essential (primary) hypertension
CPT/HCPCS: 99214

== ENCOUNTER → 2024-12-18 10:54 | Outpatient (BNVA) | payer MEDICARE, MEDICAID, SELFPAY | PROVIDERS: PCP Internal Medicine; Visit Provider Internal Medicine Nephrology | DX: I12.9 Hypertensive chronic kidney disease with stage 1 through stage 4 chronic kidney disease, or unspecified chronic kidney disease (principal); N18.31 Chronic kidney disease, stage 3a | CPT/HCPCS: 99212 ==

== ENCOUNTER 2025-06-17 10:32 | Outpatient (REF) | payer MEDICARE, MEDICAID, SELFPAY ==
[2025-06-17 13:09] LABS: MANUAL DIFF FLAG NO
[2025-06-17 13:12] LABS: Hematocrit 35.6 % (37.0-47.0); Hemoglobin 11.5 g/dl (12.0-16.0); Imm Gran Abs Auto 0.01 X10*3/uL (0.00-0.03); Imm Gran Pct Auto 0.2 % (0.0-0.4); Lymphocytes Absolute Auto 2.1 X10*3/uL (1.2-4.9); Mean Corpuscular HGB Conc 32.3 g/dl (31.0-35.0); Mean Corpuscular Hemoglobin 27.4 pg (27.0-33.0); Mean Corpuscular Volume 84.8 fL (80.0-98.0); NRBC Abs Auto 0.000 X10*3/uL (0.0-0.012); NRBC Pct Auto 0.0 /100WBC (0.0-0.2); Platelet Count 247 X10*3/uL (160-400); Red Blood Count 4.20 X10*6/uL (4.20-5.50); White Blood Count 4.6 X10*3/uL (4.8-10.8)
[2025-06-17 13:38] LABS: Anion Gap 11 (12-20); Blood Urea Nitrogen 18 mg/dL (9-16); Calcium 9.2 mg/dL (8.4-10.2); Carbon Dioxide 28 mmol/L (22-29); Chloride 104 mmol/L (96-108); Estimated Glomerular Filt Rate 45; Potassium 4.0 mmol/L (3.3-5.1); Sodium 139 mmol/L (135-145)
== END 2025-06-17 10:33 | disposition home or self-care (01) ==
LOC: HO.HKASLDS 10:32
PROVIDERS: Visit Provider Internal Medicine Nephrology
DX: I12.9 Hypertensive chronic kidney disease with stage 1 through stage 4 chronic kidney disease, or unspecified chronic kidney disease (principal); N18.31 Chronic kidney disease, stage 3a
CPT/HCPCS: 36415; 80051; 82310; 82565; 84520; 85025

== ENCOUNTER 2025-06-25 13:21 | Outpatient (AMB) | payer MEDICARE, MEDICAID, SELFPAY ==
--- NOTE | 2025-06-25 13:35 | HO.NEPHOV_ITS ---
Vital Signs 06/25/25 13:38 Height 5 ft 1 in Weight 142 lb 4 oz BMI 26.9 BP 124/70 Blood Pressure Location Lt brachial Position Sitting Pulse 59 Pulse Source Pulse Oximeter Pulse Oximetry (%) 99 Oxygen Delivery Method Room Air Intake Visit Reasons: 6mon follow-up w/labs-LVM Core Assembly Supervisor Required: No Accompanied by: Self / Same As Patient Allergies lactose Allergy (Verified 06/25/25 13:38) Unknown onion Allergy (Verified 06/25/25 13:38) Unknown Penicillins Allergy (Verified 06/25/25 13:38) Unknown prednisone Allergy (Verified 06/25/25 13:38) Hives HPI Comments Details: Azalia was seen in follow-up of her hypertension. She feels well. Her blood pressure has been well controlled. She does not have any nausea vomiting, orthostatics symptoms, chest pain, shortness of breath, proximal nocturnal dyspnea, orthopnea, pedal edema or urinary symptoms. She does not take any nonsteroidal anti-inflammatories. She had no medication changes. She feels well. [facility] Medical History (Updated 10/25/23 @ 13:32 by Daren Rehman MD) Urinary incontinence Palpitations Osteoporosis Neck pain LLQ pain Leg weakness Left hip pain Impaired fasting glucose Hyponatremia Hyperlipidemia Hiatal hernia Glaucoma Gastritis Fatigue Esophageal reflux Emphysema of lung Diverticulosis Chronic kidney disease, stage 3a Cervical radiculopathy Cerebral aneurysm Arthritis Anemia Hypertension Surgical History Hx of appendectomy Hx of tubal ligation H/O colonoscopy Family History Mother Breast cancer Father Hypertension Social History Alcohol intake: never Patient Tobacco Use Status: Former Tobacco user Review of Systems Const All systems reviewed & are unremarkable except as noted in HPI and below Physical Exam Vital Signs: Last Vital Signs Pulse 59 06/25/25 13:38 BP 162/64 H 06/25/25 13:38 Pulse Ox 99 06/25/25 13:38 Oxygen Delivery Method Room Air 06/25/25 13:38 BMI result Body Mass Index 26.9 Const General: comfortable and no acute distress Orientation/consciousness: patient oriented x3 HEENT Head: Yes normocephalic Mouth: Normal oral and palatal mucosa present Eyes EOM: EOMs intact bilaterally Neck Neck: Yes supple Resp Auscultation: clear to auscultation bilaterally Cardio Jugular venous distension: no JVD Rate: regular rate GI Palpation (GI): Soft to palpation Auscultation: normal bowel sounds General: Yes no CVA tenderness Back/Spine/Pelvis Back: no CVA tenderness Skin General skin exam: no rashes or lesions noted Neuro General: patient oriented x3 and moves all extremities Extrem General: Yes no pedal edema Results Reviewed Nephrology Results: Hgb, (12.0-16.0) 11.5 g/dl L 06/17/25 WBC, (4.8-10.8) 4.6 X10*3/uL L 06/17/25 Plt Count, (160-400) 247 X10*3/uL 06/17/25 Sodium, (135-145) 139 mmol/L 06/17/25 Potassium, (3.3-5.1) 4.0 mmol/L 06/17/25 Chloride, (96-108) 104 mmol/L 06/17/25 Carbon Dioxide, (22-29) 28 mmol/L 06/17/25 BUN, (9-16) 18 mg/dL H 06/17/25 Creatinine, (0.5-1.4) 1.14 mg/dL 06/17/25 Calcium, (8.4-10.2) 9.2 mg/dL 06/17/25 Urine Creatinine 32.86 mg/dL 02/21/24 Protein/Creatinin Ratio TNP 02/21/24 Assessment & Plan Assessment & Plan (1) CKD (chronic kidney disease) stage 3, GFR 30-59 ml/min: Code(s): N18.30 - Chronic kidney disease, stage 3 unspecified Category: Medical Qualifiers: Chronic kidney disease stage 3 subtype: stage 3a (GFR 45-59) Qualified Code(s): N18.31 - Chronic kidney disease, stage 3a (2) Hypertension: Code(s): I10 - Essential (primary) hypertension Category: Medical Qualifiers: Hypertension type: primary hypertension Qualified Code(s): I10 - Essential (primary) hypertension Plan Azalia has longstanding hypertension. Her blood pressure is currently well controlled on current medication regimen. 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 She takes lisinopril and carvedilol twice a day and amlodipine in the middle of the day. Her serum creatinine is pretty close to base line. She maintains good hydration, low- sodium diet and avoid nonsteroidal anti-inflammatories. Doppler of renal arteries were normal in the past. She has no history of significant proteinuria. I did not make any medication changes today. Her blood pressure is at goal. No prescription refills requested today. All questions answered. Follow-up appointment given Orders: Orders Blood Urea Nitrogen 6 Months I10 - Essential (primary) hypertension, N18.31 - Chronic kidney disease, stage 3a Calcium 6 Months I10 - Essential (primary) hypertension, N18.31 - Chronic kidney disease, stage 3a Creatinine 6 Months I10 - Essential (primary) hypertension, N18.31 - Chronic kidney disease, stage 3a Electrolytes 6 Months I10 - Essential (primary) hypertension, N18.31 - Chronic kidney disease, stage 3a Coding Level of Care Code Est Pt Level 4 (36743) Diagnoses Stage 3a chronic kidney disease N18.31 Chronic kidney disease stage 3 subtype: stage 3a (GFR 45-59) Primary hypertension I10 Hypertension type: primary hypertension
[2025-06-25 13:38] VITALS: BP 124/70; PULSE 59; O2SAT 99; BMI 26.9
--- OUTSIDE RECORDS SUMMARY | 2025-06-25 17:10 | XMS_ITS | Clinical Summary ---
Author Organization [address] [place] [address] [place] [address] Phone Care Team Providers Care Reception Specialist Name Role Phone Violeta Busby MD Primary Care Provider [phone]- [phone] Allergies Active Allergy Reactions Criticality Noted Date [...] 64 08/06/2024 2:55 PM EST Temperature 36.3 C (97.3 F) 08/06/2024 2:51 PM EST Respiratory Rate - - Oxygen Saturation 98% 08/06/2024 2:55 PM EST Inhaled Oxygen Concentration - - Weight - - Height - - Body Mass Index - - Plan of Treatment Health Maintenance Due Date Last Done Comments Zoster Vaccines (1 of 2) 1988 RSV Immunization Adult Patients (1 - 1-dose 75+ series) 2013 Cholesterol Screening (Lipid Panel) 08/07/2024 Falls Risk Assessment 08/07/2024 Hypertension/CHF/CAD Annual BMP Blood Test 08/07/2024 Medicare Annual Wellness Visit 08/07/2024 Osteoporosis Screening (Bone Density Screening) 08/07/2024 Social Influencers of Health Screening 08/07/2024 Depression Screening 08/29/2024 COVID-19 Vaccine ( season) 2025 05/31/2023, 05/26/2022, 08/12/2021, Additional history exists Influenza Vaccine (#1) 2025 , 07/19/2023, 06/28/2022, Additional history exists DTaP,Tdap,and Td Vaccines (2 - Td or Tdap) 03/26/2026 03/26/2016 Pneumococcal Vaccine: 50+ Years Completed 01/31/2023, 10/25/2017, 07/03/2015 HIB Vaccines Aged Out No longer eligi [...] HEALTHCARE MEDICARE MEDICAID - [place] Care Teams Reception Specialist Relationship Specialty Start Date End Date Violeta Busby MD [address] [place] [address] PCP - General Internal Medicine 08/06/24
--- OUTSIDE RECORDS SUMMARY | 2025-06-25 17:10 | XMS_ITS | Data Portability ---
Author Organization [place] - [facility], Allergy Address [address] [address] Care Team Providers Care Shroud Line Tier Name Role Phone NANNETTE TOLEDO Primary Care [...] using a white noise machine, music, or television.We discussed how exposure to loud noise can [...] Address Organization Details Recorded Time Bilateral tinnitus 7111548651240 Active 2024 MARCIAL JESUS, AUD [address] [facility], [place], [address], [facility] 5 10:10:31 Sensorineur al hearing loss of bilateral ears 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 Procedures Surgical History Date Name Laterality Status Provider Name and Address Organization Details Recorded Time 10/09/2024 Comp Audio with Tymps - 91868 & 58768 completed MARCIAL JESUS, [facility] [address] [facility] [address], [place], [address], [facility] 10/09/2024 10:10:57 Imaging Results None recorded. Procedure Notes None recorded. Medical Equipment None Reported. Allergies Allergen ID Allergen Name Allergen Category Reaction Reaction Severity Criticality Documentation Date Start Date Code Code System Note Provider Name and Address Organization Details Recorded Time 402625 onion extract food,medi cation Not available Not available Not available 10/09/2024 41125 69 RxNorm Gertrude dominguez [place] [facility] 5 11:09:48 553221 Product containin g penicilli n (product) medicatio n Not available Not available Not available 10/09/2024 00642 8001 SNOMED Gertrude dominguez [place] [facility] 5 11:09:56 Medications Name Sig Start Date Stop [...] Updated DateTime 10/09/2024 154.94 cm 26.5 kg/m2 00050.93 g Gertrude Jaimes [place] - [facility] 10/09/2024 11:09:29 Social History None recorded. Functional Status Question Answer Note LastModified by Organization D etails LastModified Time What is your level of alcohol consumption? None Information not available 10/09/2024 Mental Status None recorded. Family History Nothing Reported. Medical History Condition Response Anemia Y Hypertension Y Kidney Disease Y Gynecological HistoryNo gynecological history recorded. Obstetrics History GPAL:G 0 P 0 0 0 0 Past Encounters Encounter ID Performer Location Encounter Start Date Encounter Closed Date Diagnosis/Indication Diagnosis SNOMED-CT Code Diagnosis ICD10 Code Diagnosis IMO Codes Diagnosis Note [id number] SAMANTHA STEWART MD [facility] [address] [address] 10/09/2024 09:52:38 10/09/2024 11:25:29 Bilateral tinnitus 0356914432 102 H93.13 Sensorineu ral hearing loss of bilateral ears 374842899 H90.3 Right Ear:Normal hearing through 4K Hz [...] Recorded Advance Directives Directive None Recorded Payers Insurance Date Sequence Insurance Name Policy Number Policy Garza Covered Member ID Garza Member ID Guarantor Name 02/11/2025 2 [place] Azalia Blanks [id number] Azalia Blanks 04/26/2024 1 [employer] (PPO) Azalia Blanks [id number] Azalia Blanks 02/11/2025 1 [facility] (MEDICARE REPLACEMENT/A DVANTAGE - PPO) [id number] Azalia Blanks [id number] Azalia Blanks Notes Date Note Type Note [...] seems to be present. SAMANTHA STEWART MD [address] [place] [address], [phone], [facility] - [facility] 10/09/2024 11:24:51 OBGyn Episode No OBEpisode recorded.
--- OUTSIDE RECORDS SUMMARY | 2025-06-25 17:10 | XMS_ITS | Clinical Summary ---
Author Organization [facility] Address [address] [place] [address] Phone Care Team Providers Care Road Advisor Name Role Phone Violeta Busby MD Primary Care Provider [phone]- [phone] Allergies Active Allergy Reactions Criticality Noted Date [...] Glaucoma 10/15/2021 10/15/2021 Hiatal hernia 10/15/2021 10/15/2021 Pain of hip region 10/15/2021 Hyperlipidemia 10/15/2021 10/15/2021 Impaired fasting glycemia [...] Due Date Last Done Comments Influenza Vaccine (#1) 2025 06/28/2022 Pneumococcal Vaccine: 50+ Years Completed 10/25/2017, 07/03/2015 Pneumococcal Vaccine: Peds (0 to 5 Years) and At-Risk Patients (6 to 49 Years) Discontinued 10/25/2017, 07/03/2015 Hepatitis B Vaccine Aged Out No longe r eligible based on patient's age to complete this topic Insurance [place] Medicaid [place] Care Teams Road Advisor Relationship Specialty Start Date End Date Violeta Busby MD [facility] [place], [place] PCP - General 09/08/20
== END 2025-06-25 13:55 | disposition home or self-care (01) ==
LOC: HO.HKAS 13:22
PROVIDERS: PCP Internal Medicine; Visit Provider Internal Medicine Nephrology
DX: N18.31 Chronic kidney disease, stage 3a (principal); I10 Essential (primary) hypertension
CPT/HCPCS: 99214

== ENCOUNTER → 2025-06-25 13:21 | Outpatient (BNVA) | payer MEDICARE, MEDICAID, SELFPAY | PROVIDERS: PCP Internal Medicine; Visit Provider Internal Medicine Nephrology | DX: I12.9 Hypertensive chronic kidney disease with stage 1 through stage 4 chronic kidney disease, or unspecified chronic kidney disease (principal); N18.31 Chronic kidney disease, stage 3a | CPT/HCPCS: 99212 ==